=== PATIENT | male | born 1960 | race Caucasian/White ===

== ENCOUNTER 2020-03-27 13:47 | Emergency (ER) | payer OTHER ==
[~2020-03-27] VITALS: Ht 188 cm; Wt 70.1 kg
[2020-03-27 13:54] VITALS: BP 113/79
--- NOTE | 2020-03-27 14:19 | NUR ---
SPEAKING WITH PT IN RESPIRATORY LOBBY. PT WANTS TO BE ADMITTED BECAUSE HE HAS LEFT HIP PAIN AND HE IS STARVING. UPON QUESTIONING PT STATES HE CAME BY [facility] FROM [place]. PT NOT ALLOWING DOCTOR TO EXAMINE HIM AND AGITATED AND HOSTILE. PT ABLE TO STAND AND WALK WITH WALKER. PT STATING HE HAS THE RIGHT TO BE ADMITTED AND THAT HE SHOULD BE 300 POUNDS BECAUSE HE IS [place] AND HAS HEAVY BONES. 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 MD WENT TO GET DISCHARGE PAPERS PRINTED OUT AND PT HAD TO BE ESCORTED OFF CAMPUS BECAUSE OF HIS AGITATION.
== END 2020-03-27 14:33 | disposition home or self-care (01) ==
LOC: ED 14:27
DX: M25.552 Pain in left hip (principal); Z59.0 Homelessness
CPT/HCPCS: 99281

== ENCOUNTER 2020-04-13 09:14 | Emergency (ER) | payer SELFPAY ==
[~2020-04-13] VITALS: Ht 188 cm; Wt 70.0 kg
[2020-04-13 09:16] VITALS: BP 140/78
--- NOTE | 2020-04-13 09:16 | NUR ---
[facility] transport to [facility]
--- NOTE | 2020-04-13 09:26 | NUR ---
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 VSS/COMPLAINTS APPEAR ORTHOPEDIC. 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
--- NOTE | 2020-04-13 09:27 | NUR ---
report to [facility]
--- NOTE | 2020-04-13 10:15 | NUR ---
pt was uncooperative w radiology for film of left shoulder. md is aware, and willing to forego the imaging at this time.
[2020-04-13] MEDS ORDERED: IBUPROFEN 600 MG TABLET ONE (12:24)
[2020-04-13] MEDS ORDERED: IBUPROFEN 200 MG TABLET PO ONE (12:30)
--- NOTE | 2020-04-13 12:42 | NUR ---
pt uncooperative w discharge. demanding stronger pain management, as well as other delusional plans. he was re-directed by securityto the exit, where [facility] is awaiting him for a ride home.
== END 2020-04-13 12:46 | disposition home or self-care (01) ==
LOC: ED 09:43
DX: M25.552 Pain in left hip (principal); M25.512 Pain in left shoulder; F17.210 Nicotine dependence, cigarettes, uncomplicated
CPT/HCPCS: 99283

== ENCOUNTER 2020-05-10 11:09 | Emergency (ER) | payer SELFPAY ==
[~2020-05-10] VITALS: Ht 188 cm; Wt 60.0 kg
[2020-05-10 11:30] VITALS: BP 138/77
[2020-05-10] MEDS ORDERED: KETOROLAC 30 MG/1 ML IM ONE (11:30)
[2020-05-10] MEDS ORDERED: KETOROLAC 60 MG/2 ML ONE (11:32)
--- NOTE | 2020-05-10 11:40 | NUR ---
MEDICATED FOR PAIN. MD AWARE LARGE BLISTER RIGHT PALM R/T USING WALKER. MD STATES BEST TO LEAVE IT INTACT. PT DECLINED XRAY. STATES [employer] CALLED AHEAD AND SAID WE HAD TO ADMIT HIM TO THE HOSPITAL AND FEED HIM BECAUSE HE IS STARVING. PT HAS CHRONIC PAIN R/T PREVIOUS INJURY
[2020-05-10] MEDS ORDERED: PLEASE ENTER ALLERGIES MC SCH (12:00)
[2020-05-10] MEDS ORDERED: PLEASE ENTER HEIGHT AND WEIGHT MC SCH (12:00)
== END 2020-05-10 12:00 | disposition home or self-care (01) ==
LOC: ED 11:56
DX: M25.552 Pain in left hip (principal); M25.512 Pain in left shoulder; M54.5 Low back pain
CPT/HCPCS: 96372; 99283; J1885

== ENCOUNTER 2020-06-30 13:37 | Emergency (ER) | payer SELFPAY ==
[~2020-06-30] VITALS: Ht 188 cm; Wt 80.4 kg
--- NOTE | 2020-06-30 14:49 | NUR ---
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 JEET
[2020-06-30] MEDS ORDERED: HYDROcodone/APAP 10/325 MG TABLET PO ONE (15:30)
[2020-06-30 16:08] LABS: MEAN CORPUSCULAR HEMOGLOBIN 31.8 pg (27.5-34.5); MEAN CORPUSCULAR HGB CONC 33.5 g/dL (33.2-36.2); MEAN PLATELET VOLUME 7.8 fL (7.4-10.4); PLATELET COUNT 316 x10^3/uL (130-400)
[2020-06-30 16:19] LABS: ANION GAP 5 mmol/L (5-15); CALCIUM 8.5 mg/dL (8.5-10.1); CHLORIDE 111 mmol/L (98-107); CREATININE 0.85 mg/dL (0.7-1.3)
[2020-06-30] MEDS ORDERED: HYDROcodone/APAP 10/325 MG TABLET ONE (16:35)
[2020-06-30 16:45] LABS: MD YES
--- NOTE | 2020-06-30 16:45 | NUR ---
[facility] SENT. PT RESTING, MEAL TRAY IN ORDERED.
[2020-06-30 16:48] LABS: <PLATELET ESTIMATE> ADEQUATE; <RBC MORPHOLOGY> NORMAL; BASOS#(MANUAL) 0.15 x10^3/uL (0-0.1); BASOS% (MANUAL) 1 % (0-1); EOS#(MANUAL) 1.89 x10^3/uL (0.0-0.4); EOS% (MANUAL) 13 % (1-7); LYMPH#(MANUAL) 1.02 x10^3/uL (1-3.4); LYMPHS% (MANUAL) 7 % (22-44); MONOS#(MANUAL) 1.02 x10^3/uL (0.3-2.7); MONOS% (MANUAL) 7 % (2-9); SEG#(MANUAL) 10.44 x10^3/uL (1.8-6.8); SEGS% (MANUAL) 72 % (42-75)
[2020-06-30 16:49] LABS: <PLT MORPHOLOGY> NORMAL PLT MORPH
[2020-06-30 16:54] LABS: MICROSCOPIC INDICATED
[2020-06-30] MEDS ORDERED: AMOXICILLIN/CLAV 875-125MG TABLET PO ONE (17:30)
[2020-06-30] MEDS ORDERED: AMOXICILLIN/CLAV 875-125MG TABLET ONE (17:37)
[2020-06-30 18:03] VITALS: BP 118/75
--- NOTE | 2020-06-30 18:08 | NUR ---
WAITING FOR XRAY TO COMPLETE
--- NOTE | 2020-06-30 19:08 | NUR ---
REPORT OF PT FROM LUDIVINA SY, AND ASSUMING CARE AT THIS TIME. PT ASSISTED TO LOBBY FOR D/C WITH BUS PASS PROVIDED. PT HAS D/C PAPERWORK AND RESOURCES AT TIME OF D/C. PT DENIES ANY OTHER NEEDS PERTAINING TO THIS VISIT.
== END 2020-06-30 19:14 | disposition home or self-care (01) ==
LOC: ED 19:10
DX: G89.29 Other chronic pain (principal); M54.5 Low back pain; M47.9 Spondylosis, unspecified; Z72.9 Problem related to lifestyle, unspecified
CPT/HCPCS: 36415; 71045; 80048; 81001; 85025; 99284